=== PATIENT | female | born 1965 | race African-American/Black ===

== ENCOUNTER 2022-04-13 20:10 | Emergency (ER) | payer MEDICAID, OTHER ==
[~2022-04-13] VITALS: Ht 170.2 cm; Wt 59.0 kg
[~2022-04-13 20:10] MED LIST: BUPROPION; CITALOPRAM; QUETIAPINE
[2022-04-13 20:15] VITALS: BP 142/70
== END 2022-04-13 21:18 ==
LOC: ER 20:10
DX: R10.9 Unspecified abdominal pain (principal); Z53.21 Procedure and treatment not carried out due to patient leaving prior to being seen by health care provider
CPT/HCPCS: 99283